=== PATIENT | female | born 1995 | race Caucasian/White ===

== ENCOUNTER 2017-06-12 14:07 | Outpatient (CLI) | payer MEDICAID | END 2017-06-12 16:55 | disposition home or self-care (01) | LOC: OBT 14:07 → L-D 14:08 → OBT 16:55 | DX: O26.893 Other specified pregnancy related conditions, third trimester (principal); Z3A.37 37 weeks gestation of pregnancy; R10.30 Lower abdominal pain, unspecified; R06.02 Shortness of breath | CPT/HCPCS: 76818 ==

== ENCOUNTER 2017-07-03 08:48 | Inpatient (IN) | payer MEDICAID ==
[2017-07-03] MEDS ORDERED: CARBOPROST 250 MCG INJ IM (09:30)
[2017-07-03] MEDS ORDERED: OXYTOCIN 30 UNITS/LR 500 ML IV ×2 (09:30)
[2017-07-03] MEDS ORDERED: MISOPROSTOL 200 MCG TAB PR (09:30)
[2017-07-03] MEDS: LACTATED RINGER'S 1,000 ML IV ×2 (09:37→12:34)
[2017-07-03 10:04] LABS: ADD MAN DIFF? NO
[2017-07-03 10:05] LABS: BASOPHILS % 0.3 % (0.0-2.0); EOSINOPHILS # 0.1 10^3/ul (0.0-0.5); EOSINOPHILS % 1.1 % (0.0-7.0); HEMATOCRIT 28.4 % (37.0-47.0); HEMOGLOBIN 8.9 g/dl (12.0-16.0); LYMPHOCYTES # 1.4 10^3/ul (0.8-2.9); LYMPHOCYTES % 12.6 % (18.0-55.0); MEAN CORPUSCULAR HEMOGLOBIN 24.5 pg (29.0-33.0); MEAN CORPUSCULAR HGB CONC 31.3 g/dl (32.0-37.0); MEAN CORPUSCULAR VOLUME 78.2 fl (72.0-104.0); MONOCYTE # 0.9 10^3/ul (0.3-0.9); MONOCYTES % 7.9 % (0.0-13.0); NEUTROPHIL # 8.5 10^3/ul (1.6-7.5); NEUTROPHILS % 77.2 % (30.0-74.0); PLATELET COUNT 273 10^3/UL (140-415); RED BLOOD COUNT 3.63 10^6/ul (4.20-5.40); RED CELL DISTRIBUTION WIDTH 14.2 % (11.5-14.5)
[2017-07-03] MEDS ORDERED: AMPICILLIN 2 GM/NS (PMX) 100 ML (10:11)
[2017-07-03] MEDS: AMPICILLIN 2 GM/NS (PMX) 100 ML IVPB (10:20)
[2017-07-03 10:24] LABS: INR 0.93; PROTIME 12.5 Sec (11.9-14.9)
[2017-07-03 10:25] LABS: PARTIAL THROMBOPLASTIN TIME 27.5 Sec (25.0-35.0)
[2017-07-03] MEDS: OXYTOCIN 30 UNITS/LR 500 ML IV ×3 (10:32→21:31)
[2017-07-03 11:05] LABS: HEPATITIS B SURFACE ANTIGEN NEGATIVE (NEGATIVE)
[2017-07-03] MEDS ORDERED: FENTAnyl 2MCG/ML-ROPIV 0.2% 100 ML (11:40)
[2017-07-03] MEDS ORDERED: DIPHENHYDRAMINE 50 MG INJ IV (13:00)
[2017-07-03] MEDS ORDERED: NALOXONE (0.4 MG/ML) INJ IV (13:00)
[2017-07-03] MEDS ORDERED: ONDANSETRON 4 MG INJ IV ×2 (13:00→21:00)
[2017-07-03] MEDS: AMPICILLIN 1 GM/NS (PMX) 50 ML IVPB ×2 (14:59→18:30)
[2017-07-03 15:37] LABS: RAPID PLASMA REAGIN NONREACTIVE (NR)
[2017-07-03] MEDS: FENTAnyl 2MCG/ML-ROPIV 0.2% 100 ML BAG EPI (16:21)
[2017-07-03] MEDS: LIDOCAINE 1% (MPF) 30 ML INJ INJ ×2 (16:40→18:50)
[2017-07-03] MEDS: METHYLERGONOVINE 0.2 MG INJ IM (17:01)
[2017-07-03 17:34] LABS: HEMATOCRIT 26.9 % (37.0-47.0); HEMOGLOBIN 8.5 g/dl (12.0-16.0)
[2017-07-03] MEDS: IBUPROFEN 600 MG TAB PO (17:42)
[2017-07-03] MEDS ORDERED: HYDROCODONE/APAP (5/325) TAB PO (21:00)
[2017-07-03] MEDS ORDERED: ACETAMINOPHEN 325 MG TAB PO (21:00)
[2017-07-03] MEDS ORDERED: BENZOCAINE 20% 56 ML SPRAY TOP (21:00)
[2017-07-03] MEDS: OXYCODONE/ASPIRIN (4.88/325) TAB PO (21:28)
[2017-07-03] MEDS: SENNA/DOCUSATE NA (8.6MG/50MG) TAB PO (21:28)
[2017-07-03] MEDS: LANOLIN 7 GM TUBE TOP (21:36)
[2017-07-03] MEDS: WITCH HAZEL/GLYCERIN PAD PR (21:36)
[2017-07-03] MEDS: DIBUCAINE 1% 30 GM OINT PR (21:36)
[2017-07-04] MEDS: IBUPROFEN 600 MG TAB PO ×4 (00:14→17:50)
[2017-07-04 08:17] LABS: ADD MAN DIFF? NO
[2017-07-04] MEDS: SENNA/DOCUSATE NA (8.6MG/50MG) TAB PO ×2 (08:22→20:18)
[2017-07-04] MEDS: OXYCODONE/ASPIRIN (4.88/325) TAB PO (08:23)
[2017-07-04 08:33] LABS: BASOPHILS % 0.2 % (0.0-2.0); EOSINOPHILS # 0.2 10^3/ul (0.0-0.5); EOSINOPHILS % 1.7 % (0.0-7.0); HEMATOCRIT 22.5 % (37.0-47.0); HEMOGLOBIN 7.1 g/dl (12.0-16.0); LYMPHOCYTES # 1.2 10^3/ul (0.8-2.9); LYMPHOCYTES % 11.3 % (18.0-55.0); MEAN CORPUSCULAR HEMOGLOBIN 24.8 pg (29.0-33.0); MEAN CORPUSCULAR HGB CONC 31.6 g/dl (32.0-37.0); MEAN CORPUSCULAR VOLUME 78.7 fl (72.0-104.0); MEAN PLATELET VOLUME 11.3 fl (7.4-10.4); MONOCYTE # 0.8 10^3/ul (0.3-0.9); MONOCYTES % 7.5 % (0.0-13.0); NEUTROPHIL # 8.3 10^3/ul (1.6-7.5); NEUTROPHILS % 78.1 % (30.0-74.0); PLATELET COUNT 228 10^3/UL (140-415); RED BLOOD COUNT 2.86 10^6/ul (4.20-5.40); RED CELL DISTRIBUTION WIDTH 14.4 % (11.5-14.5)
[2017-07-04 08:33] LABS: WHITE BLOOD COUNT 10.6 10^3/ul (4.8-10.8)
[2017-07-04 15:08] LABS: RHOGAM PROFILE 1 1
[2017-07-04] MEDS: HYDROCODONE/APAP (5/325) TAB PO (15:38)
[2017-07-05] MEDS: IBUPROFEN 600 MG TAB PO ×3 (00:27→13:01)
[2017-07-05] MEDS: SENNA/DOCUSATE NA (8.6MG/50MG) TAB PO (09:00)
[2017-07-05] MEDS: MEASLES,MUMPS,RUBELLA VACCINE INJ SC* (09:00)
== END 2017-07-05 15:10 | disposition home or self-care (01) | DRG 774 ==
LOC: L-D 08:48 → PP1 20:14
PROVIDERS: Obstetrics & Gynecology
PROC: 10E0XZZ Delivery of Products of Conception, External Approach (ICD-10-PCS; principal; 2017-07-03 08:00)
PROC: 0HQ9XZZ Repair Perineum Skin, External Approach (ICD-10-PCS; 2017-07-03 08:00)
DX: O69.81X0 Labor and delivery complicated by cord around neck, without compression, not applicable or unspecified (principal); O72.1 Other immediate postpartum hemorrhage; O70.0 First degree perineal laceration during delivery; Z37.0 Single live birth; Z3A.40 40 weeks gestation of pregnancy
CPT/HCPCS: 62319; 85014; 85018; 85025; 85610; 85730; 86592; 86850; 86885; 86900; 86901; 87340

== ENCOUNTER 2018-01-02 10:34 | Emergency (ER) | payer MEDICAID ==
[2018-01-02 11:14] LABS: URINE BLOOD (Dip) POC 2+ (NEGATIVE); URINE GLUCOSE (Dip) POC Negative (NEGATIVE); URINE KETONES (Dip) POC 4+ (NEGATIVE); URINE LEUKOCYTE EST (Dip) POC Negative (NEGATIVE); URINE NITRITE (Dip) POC Negative (NEGATIVE); URINE TOTAL PROTEIN POC 2+ (NEGATIVE)
[2018-01-02] MEDS: LORAZEPAM 0.5 MG TAB PO (11:17)
[2018-01-02 11:28] LABS: ADD MAN DIFF? NO
[2018-01-02 11:31] LABS: BASOPHILS % 0.4 % (0.0-2.0); EOSINOPHILS # 0.2 10^3/ul (0.0-0.5); EOSINOPHILS % 3.1 % (0.0-7.0); HEMATOCRIT 42.9 % (37.0-47.0); HEMOGLOBIN 14.1 g/dl (12.0-16.0); LYMPHOCYTES # 1.3 10^3/ul (0.8-2.9); LYMPHOCYTES % 19.8 % (15.0-51.0); MEAN CORPUSCULAR HEMOGLOBIN 27.8 pg (29.0-33.0); MEAN CORPUSCULAR HGB CONC 32.9 g/dl (32.0-37.0); MEAN CORPUSCULAR VOLUME 84.6 fl (82.0-101.0); MEAN PLATELET VOLUME 10.5 fl (7.4-10.4); MONOCYTE # 0.3 10^3/ul (0.3-0.9); MONOCYTES % 4.6 % (0.0-11.0); NEUTROPHIL # 4.8 10^3/ul (1.6-7.5); NEUTROPHILS % 71.7 % (39.0-77.0); PLATELET COUNT 359 10^3/UL (140-415); RED BLOOD COUNT 5.07 10^6/ul (4.20-5.40); RED CELL DISTRIBUTION WIDTH 14.3 % (11.5-14.5)
[2018-01-02 11:31] LABS: WHITE BLOOD COUNT 6.7 10^3/ul (4.8-10.8)
[2018-01-02 11:49] LABS: ANION GAP 10 (5-13); BLOOD UREA NITROGEN 10 mg/dl (7-20); CARBON DIOXIDE 28 mmol/L (21-31); CHLORIDE 103 mmol/L (97-110); CREATININE 0.59 mg/dl (0.44-1.00); GLUCOSE 116 mg/dl (70-220); POTASSIUM 3.9 mmol/L (3.5-5.1); SODIUM 141 mmol/L (135-144)
[2018-01-02 12:19] LABS: THYROID STIMULATING HORMONE 0.909 MIU/L (0.465-4.680)
== END 2018-01-02 13:10 | disposition home or self-care (01) ==
LOC: FTE 10:34
DX: F41.9 Anxiety disorder, unspecified (principal); Z87.891 Personal history of nicotine dependence
CPT/HCPCS: 80048; 81003; 81025; 84443; 85025; 99283

== ENCOUNTER 2018-03-20 19:43 | Emergency (ER) | payer SELFPAY, MEDICAID ==
[2018-03-20 22:58] LABS: ADD MAN DIFF? NO
[2018-03-20 23:01] LABS: BASOPHIL # 0.1 10^3/ul (0.0-0.1); BASOPHILS % 0.5 % (0.0-2.0); EOSINOPHILS # 0.2 10^3/ul (0.0-0.5); EOSINOPHILS % 2.3 % (0.0-7.0); HEMATOCRIT 42.5 % (37.0-47.0); LYMPHOCYTES # 2.8 10^3/ul (0.8-2.9); LYMPHOCYTES % 27.1 % (15.0-51.0); MEAN CORPUSCULAR HEMOGLOBIN 27.8 pg (29.0-33.0); MEAN CORPUSCULAR HGB CONC 32.9 g/dl (32.0-37.0); MEAN CORPUSCULAR VOLUME 84.5 fl (82.0-101.0); MONOCYTE # 0.5 10^3/ul (0.3-0.9); MONOCYTES % 4.4 % (0.0-11.0); NEUTROPHIL # 6.9 10^3/ul (1.6-7.5); NEUTROPHILS % 65.4 % (39.0-77.0); PLATELET COUNT 367 10^3/UL (140-415); RED BLOOD COUNT 5.03 10^6/ul (4.20-5.40); RED CELL DISTRIBUTION WIDTH 13.2 % (11.5-14.5)
[2018-03-20 23:01] LABS: WHITE BLOOD COUNT 10.5 10^3/ul (4.8-10.8)
[2018-03-20 23:18] LABS: ALANINE AMINOTRANSFERASE 15 IU/L (13-69); ALBUMIN 4.6 g/dl (3.3-4.9); ALBUMIN/GLOBULIN RATIO 1.15; ALKALINE PHOSPHATASE 98 IU/L (42-121); ANION GAP 15 (5-13); ASPARTATE AMINO TRANSFERASE 20 IU/L (15-46); BILIRUBIN,INDIRECT 0.3 mg/dl (0-1.1); BILIRUBIN,TOTAL 0.3 mg/dl (0.2-1.3); BLOOD UREA NITROGEN 13 mg/dl (7-20); CALCIUM 9.8 mg/dl (8.4-10.2); CARBON DIOXIDE 24 mmol/L (21-31); CHLORIDE 102 mmol/L (97-110); CREATININE 0.57 mg/dl (0.44-1.00); Estimated GFR > 60 mL/min (>60); GLUCOSE 131 mg/dl (70-220); POTASSIUM 4.7 mmol/L (3.5-5.1); SODIUM 141 mmol/L (135-144); TOTAL PROTEIN 8.6 g/dl (6.1-8.1)
[2018-03-20 23:29] LABS: TROPONIN-I < 0.012 ng/ml (0.000-0.120)
== END 2018-03-21 01:31 | disposition left against medical advice (07) ==
LOC: FTE 03-21 01:31
DX: R07.89 Other chest pain (principal)
CPT/HCPCS: 36415; 71045; 80053; 81025; 84484; 85025; 93005; 99285-25